=== PATIENT | male | born 1980 | race Caucasian/White ===

== ENCOUNTER 2024-09-09 09:25 | Day surgery (SDC) | payer MEDICAID, SELFPAY ==
--- NOTE | 2024-09-08 07:26 | EKG_ITS ---
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
[2024-09-08 10:06] VITALS: BMI 26.1
[2024-09-08 11:00] LABS: Basophils % (Auto) 1 % (0-2.5); Eosinophils # (Auto) 0.2 Thou/mm3 (0.0-0.5); Eosinophils % (Auto) 3 % (0-10); Hematocrit 53.4 % (41.0-53.0); Hemoglobin 18.7 g/dL (13.5-16.0); Immature Granulocytes % (Auto) 0 % (0-0); Immature Granulocytes Auto 0.02 Thou/mm3 (0.00-0.00); Lymphocytes # (Auto) 1.7 Thou/mm3 (1.0-4.8); Lymphocytes % (Auto) 26 % (10-50); Mean Corpuscular Volume 94 fL (80-100); Monocytes # (Auto) 0.7 Thou/mm3 (0.0-0.8); Monocytes % (Auto) 10 % (0-12); Neutrophils # (Auto) 3.8 Thou/mm3 (1.8-7.7); Neutrophils % (Auto) 59 % (37-80); Nucleated Red Blood Cell % 0 /100 WBC (0); Platelet Count 227 Thou/mm3 (140-440); RDW Standard Deviation 43.2 fL (35.1-43.9); Red Blood Count 5.66 Miln/mm3 (4.50-5.90); White Blood Count 6.4 Thou/mm3 (3.8-10.6)
[2024-09-08 11:18] LABS: Anion Gap 6 (7-16); BUN/Creatinine Ratio 13 Ratio (12-20); Blood Urea Nitrogen 13 mg/dL (9-23); Calcium 10.2 mg/dL (8.3-10.6); Chloride 108 mMol/L (98-107); Estimated Creatinine Clearance 109.9 mL/min (>60); Glucose 99 mg/dL (74-106); Osmolality,Calculated 285 (275-295); Potassium 4.4 mMol/L (3.4-5.1); Sodium 143 mMol/L (136-145); eGFR > 60 See Note
[2024-09-09] VITALS (11 sets, daily range): BP systolic 110–140; BP diastolic 76–90; PULSE 85–105; RESP 13–17; TEMP 36.4–36.7; O2SAT 92–99; BMI 25.6
[2024-09-09] MEDS: ALBUTEROL/IPRATROPIUM (Duoneb) RT SOL 3 ML NEBU INH (11:36)
--- NOTE | 2024-09-09 13:40 | PD.SUROPNT ---
Date of Procedure 09/09/24 Pre Op Diagnosis Incarcerated umbilical hernia Post Op Diagnosis Incarcerated umbilical hernia Procedure Laparoscopy with primary repair of incarcerated umbilical hernia Findings An approximately 1 cm umbilical hernia defect with incarcerated preperitoneal fat Procedure Description Patient brought into the operating room in supine position. After administration of general tracheal anesthesia, patient's abdomen prepped and draped in standard surgical manner. After administration of local anesthesia a 5 mm incision was made in the left upper quadrant Veress needle was inserted. Pneumoperitoneum was obtained up to 15 mmHg. A 5 mm trocar was placed and laparoscopic camera was inserted. The abdomen was inspected. Patient was noted to have an umbilical hernia without evidence of omental or bowel incarceration. Patient was noted to have incarcerated preperitoneal fat. The hernia defect was approximately 1 cm and I elected to primarily repair it. Laparoscopic camera was removed, pneumoperitoneum was evacuated and trocar was removed. After administration of local anesthesia 3 cm semicircular incision was made above the umbilicus and dissection was deepened into soft tissue. The umbilicus was detached from anterior abdominal fascia the hernia sac was circumferentially dissected off surrounding tissue. The hernia sac was opened, the contents were incarcerated preperitoneal fat. The hernia sac along with incarcerated preperitoneal fat were excised. The fascial defect was approximately 1 cm in diameter. The defect was primarily closed with interrupted sutures using 0 Ethibond. The umbilicus was reattached into anterior abdominal fascia. Soft tissue reapproximated with interrupted sutures using 2-0 Vicryl and the incisions were closed with 4-0 Monocryl in subcuticular fashion. Dermabond applied. Patient tolerated the procedure well. He was extubated, breathing spontaneously and without difficulty and was transferred to postanesthesia care in stable condition. Instruments, needles and sponge counts were reported to be correct x 2. Anesthesia GETA and local Pathology / specimen Other (Hernia sac) Estimated Blood Loss 2 Condition Stable Disposition PACU Surgeon Thomas Hill MD Surgical Staff Operation Date: 09/09/24 13:25 Case Staff [employer] GRINDER: Jonh Campbell RNinvestigator: Alina Dobbins
--- NOTE | 2024-09-09 13:50 | SUR.PHASEI ---
pt received from OR in recovery bay 1. pt asleep but responds to voice, breathing unlabored on oxymask 8. v/s stable. pt dressing to abd dermabond x2 cdi. report received from Mendez TSE and Jonh HAGEN.
[2024-09-09] MEDS: fentaNYL CIT INJ 50 mCg/ML AMP 2ML 25 MCG IV (14:03)
--- NOTE | 2024-09-09 14:09 | SUR.PHASEI ---
pt able to tolerate oral fluids without difficulty swallowing or nausea/vomiting.
--- NOTE | 2024-09-09 15:55 | SUR.PHASEII ---
pt awake and alert, breathing unlabored on room air. v/s stable. pt dressing to abd dermabond x2 cdi. abd binder in place. pt able to ambulate to wheelchair with steady gait. d/c instructions given with sister Fifi in room, all questions answered. pt d/c via wheelchair with all belongings.
== END 2024-09-09 15:55 | disposition home or self-care (01) ==
PROVIDERS: PCP Family Medicine; Referring Provider Surgery; Visit Provider Surgery
PROC: 0WQF4ZZ Repair Abdominal Wall, Percutaneous Endoscopic Approach (ICD-10-PCS; CPT 49592; principal; 2024-09-09 12:30)
PROC: (CPT 49592; 2024-09-09 12:30)
DX: K42.0 Umbilical hernia with obstruction, without gangrene (principal); Z01.810 Encounter for preprocedural cardiovascular examination
CPT/HCPCS: 49592; 36415; 80048; 85025; 93005; A4217; A4649; A9270; J0131; J1100; J2405; J2704; J3010; J3490